=== PATIENT | male | born 1985 | race Caucasian/White ===

== ENCOUNTER 2023-10-20 12:10 | Emergency (ER) | payer OTHER, SELFPAY ==
[2023-10-20 12:18] VITALS: BP 144/97; PULSE 96; RESP 16; TEMP 36.2; O2SAT 96; BMI 31.2
--- NOTE | 2023-10-20 12:55 | ED_ITS ---
HPI - Extremity Injury (Upper) General Chief Complaint: Extremity Pain/Injury, Upper Stated Complaint: Infection in right arm Time Seen by Provider: 10/20/23 12:18 History of Present Illness HPI narrative: This 38-year-old male comes in with concern about an infection in his right arm. 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 Since then he has developed a red streak that extends up into the midportion of his right upper arm. He does not report much pain and has not had any fevers. Related Data Previous Rx's ?Medication ?Instructions ?Recorded cephalexin 500 mg capsule 500 mg PO TID 7 days #21 caps 10/20/23 Allergies Allergy/AdvReac Type Severity Reaction Status Date / Time No Known Drug Allergies Allergy Verified 10/20/23 12:17 Review of Systems Status of ROS: Reports: 10 or more systems reviewed and unremarkable except as noted in History and below Narrative: Constitutional: No fevers, no weight gain or loss. Eyes: No discharge. No vision changes. HENT: No congestion, no sore throat, no ear pain. Cardiovascular: No chest pain, no palpitations. Respiratory: No shortness of breath, no wheezes, no cough. Gastrointestinal: No abdominal pain, no vomiting, no diarrhea. Genitourinary: No dysuria, no hematuria. Musculoskeletal: Normal range of motion. Skin: No rashes, no pruritis. Neurological: No dizziness, weakness, sensory change, speech change. Endo/Heme/Allergies: No bruising or bleeding. No polydipsia. Pysch: no suicidality, no anxiety, no insomnia. All other systems reviewed and are negative. [facility] [place] Social History Smoking Status: Never smoker How often do you have a drink containing alcohol: never AUDIT-C Alcohol total score: 0 Non-prescribed substance use: denies use Exam Narrative: Exam Narrative: Constitutional: Well-developed, well-nourished, no acute distress. HEENT: Normocephalic, atraumatic. Neck: Normal range of motion. Nontender. Supple. Heart: Regular. No murmurs. Normal rate. Intact distal pulses. Lungs: Clear to auscultation. No chest discomfort. No wheezes, rhonchi, or rales. Abdomen: Normal bowel sounds. Nontender. No rebound tenderness. Genitalia: Deferred. Back: No midline tenderness. Normal range of motion. Extremities: Normal range of motion. Small wound at his right wrist with a red streak running up the whole forearm and half of the way from the elbow up to the shoulder. Skin: Intact. No rash. Warm. No erythema or pallor. Neurologic: No altered sensation. No weakness. Alert and oriented. Psychiatric: No suicidality. No anxiety or depression. No insomnia. Nursing notes and vitals signs are reviewed. Const: Vital Signs, click to edit/add: Vital Signs - 24 hr 10/20/23 12:18 Temperature 97.1 F L Pulse Rate [Pulse Oximeter] 96 Respiratory Rate 16 Blood Pressure [Ri ght Upper Arm] 144/97 H Pulse Oximetry 96 Oxygen Delivery Me thod Room Air Course Vital Signs Vital signs: Initial Vital Signs Temperature 97.1 F L 10/20/23 12:18 Temperature Source Temporal Artery Scan 10/20/23 12:18 Pulse Rate 96 10/20/23 12:18 Respiratory Rate 16 10/20/23 12:18 Blood Pressure 144/97 H 10/20/23 12:18 Blood Pressure Mean 112 H 10/20/23 12:18 Blood Pressure Position Sitting 10/20/23 12:18 Pulse Oximetry 96 10/20/23 12:18 Oxygen Delivery Method Room Air 10/20/23 12:18 Vital Signs Temperature 97.1 F L 10/20/23 12:18 Pulse Rate 96 10/20/23 12:18 Respiratory Rate 16 10/20/23 12:18 Blood Pressure 144/97 H 10/20/23 12:18 Pulse Oximetry 96 10/20/23 12:18 Oxygen Delivery Method Room Air 10/20/23 12:18 Temperature 97.1 F L 10/20/23 12:18 Pulse Rate 96 10/20/23 12:18 Respiratory Rate 16 10/20/23 12:18 Blood Pressure 144/97 H 10/20/23 12:18 Pulse Oximetry 96 10/20/23 12:18 Oxygen Delivery Method Room Air 10/20/23 12:18 Medications Administered Medications: Discontinued Medications Generic Name Dose Route Start Last Admin Trade Name Freq PRN Reason Stop Dose Admin Ceftriaxone Sodium 1 gm/ 100 mls @ 200 mls/hr 10/20/23 12:53 10/20/23 13:40 Sodium Chloride IVPB 10/20/23 12:54 200 mls/hr ONCE ONE Administration MDM - Extremity Injury (Upper) MDM Narrative Medical decision making narrative: This patient comes in with concern about infection in his right arm as described above. An IV was established and labs are acquired which returned with normal results. His white count and lactate are in normal range. One blood cultures obtained with results pending. The patient did receive an IV dose of Rocephin. He is okay to be discharged home. I did provide a prescription for Keflex and advised him regarding signs and symptoms that would indicate a need for return and re-evaluation. Lab Data Labs: Lab Results 10/20/23 Range/Units 13:20 WBC 7.64 (4.50-11.00) K/uL RBC 4.65 (4.30-5.90) m/uL Hgb 14.5 (13.5-17.5) gm/dL Hct 41.7 (37.0-53.0) % MCV 90 (80-100) fL MCH 31 (26-34) pg MCHC 35 (32-36) gm/dL RDW Coeff of Sean 12.2 (11.5-15.5) % Plt Count 286 (140-440) K/uL Neut % (Auto) 68.4 (42.0-72.0) % Lymph % (Auto) 24.5 (20-44) % [place] % (Auto) 5.6 (0.0-11.0) % Eos % (Auto) 1.4 (0.0-7.0) % Baso % (Auto) 0.1 (0.0-3.0) % Neut # (Auto) 5.22 (1.7-7.0) K/uL Lymph # (Auto) 1.87 (0.90-2.90) K/uL [place] # (Auto) 0.40 (0.00-0.90) K/UL Eos # (Auto) 0.11 (0.00-0.50) K/uL Baso # (Auto) 0.01 (0.00-0.30) K/uL Abs Immat Gran (auto) 0.00 (0.00-0.30) K/uL Imm/Tot Granulo (auto) 0.0 % Lactate 1.3 (0.5-1.9) mmol/L Discharge Plan Discharge Clinical Impression: Cellulitis Patient Disposition: Home, Self-Care Condition: Stable Additional Instructions: Take medication as prescribed. Follow up with MD return if worsening symptoms occur. Prescriptions: New cephalexin 500 mg capsule 500 mg PO TID 7 Days Qty: 21 0RF Stand Alone Forms: [employer] Info Instructions
[2023-10-20 13:30] LABS: Lactate* 1.3 mmol/L (0.5-1.9)
[2023-10-20 13:31] LABS: Basophils Absolute Auto 0.01 K/uL (0.00-0.30); Basophils Percent Auto 0.1 % (0.0-3.0); Eosinophils Absolute Auto 0.11 K/uL (0.00-0.50); Eosinophils Percent Auto 1.4 % (0.0-7.0); Hematocrit 41.7 % (37.0-53.0); Hemoglobin* 14.5 gm/dL (13.5-17.5); Lymphocytes Absolute Auto 1.87 K/uL (0.90-2.90); Lymphocytes Percent Auto 24.5 % (20-44); Mean Corpuscular HGB Conc 35 gm/dL (32-36); Mean Corpuscular Hemoglobin 31 pg (26-34); Mean Corpuscular Volume 90 fL (80-100); Monocytes Percent Auto 5.6 % (0.0-11.0); Neutrophils Absolute Auto 5.22 K/uL (1.7-7.0); Neutrophils Percent Auto 68.4 % (42.0-72.0); Platelet Count* 286 K/uL (140-440); RDW Coefficient of Variation % 12.2 % (11.5-15.5); Red Blood Count 4.65 m/uL (4.30-5.90); White Blood Count* 7.64 K/uL (4.50-11.00)
[2023-10-20 13:39] LABS: Slide Review Reflex No
[2023-10-20] MEDS: cefTRIAXone 1 GM in 0.9 % SODIUM CHLORIDE Mini-bag 100 ML IVPB (13:40)
== END 2023-10-20 14:16 | disposition home or self-care (01) ==
PROVIDERS: Emergency Provider Emergency Medicine Emergency Medical Services
DX: L03.113 Cellulitis of right upper limb (principal)
CPT/HCPCS: 36415; 83605; 85025; 87040; 96365; 99284; J0696